=== PATIENT | male | born 1995 ===

== ENCOUNTER 2021-11-06 12:57 | Emergency (ER) | payer SELFPAY ==
--- NOTE | 2021-11-06 20:01 | XRay Report ---
LUMBAR SPINE 3 VIEWS INDICATION / CLINICAL INFORMATION: back pain. COMPARISON: None available. FINDINGS: VERTEBRAE: No acute fracture. No significant malalignment. DISC SPACES / FACET JOINTS:No significant abnormality. PARASPINAL SOFT TISSUES:No significant abnormality. ADDITIONAL FINDINGS: None. IMPRESSION: 1. No acute findings. Signer Name: Jose Alan MD Signed: 11/06/2021 7:56 PM Workstation Name: [id number]
[2021-11-06] MEDS ORDERED: KETOROLAC 30 MG/1 ML INJ IM ONE (20:33)
[2021-11-06] MEDS ORDERED: dexAMETHasone 20 MG/5 ML VIAL IM ONE (20:34)
--- NOTE | 2021-11-06 20:34 | Emergency Department Report ---
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 Patient states that he was bending down when he attempted to stand up that he felt pain in his lower back. States stiffness and tightness to the lower back. Patient rates pain is a current 5 out of 10. Patient denies any dysuria, loss of bowel or bladder. Patient able to ambulate . No obvious deformity noted. No distracting injury noted. No acute distress noted. No ill appearance noted. MD Complaint: back pain Onset/Timin -: days(s) Similar Symptoms Previously: No Place: work Radiation: none Severity scale (0 -10): 7 Quality: aching Consistency: intermittent Improves With: none, movement Context: while lifting Associated Symptoms: denies other symptoms - Related Data Previous Rx's Medication Instructions Recorded Last Taken Type Cyclobenzaprine [Flexeril] 10 mg PO TID PRN 15 Days #30 tab 11/06/21 Unknown Rx Naproxen [Naprosyn] 500 mg PO BID 15 Days #30 tablet 11/06/21 Unknown Rx predniSONE [Deltasone] 50 mg PO QDAY 5 Days #5 tab 11/06/21 Unknown Rx Allergies Allergy/AdvReac Type Severity Reaction Status Date / Time No Known Allergies Allergy Verified 11/06/21 13:26 ED Review of Systems ROS: Stated complaint: BACK/SPIN INJURY Other details as noted in HPI Constitutional: denies: chills, fever Eyes: denies: eye pain, eye discharge, vision change ENT: denies: ear pain, throat pain Respiratory: denies: cough, shortness of breath, wheezing Cardiovascular: denies: chest pain, palpitations Endocrine: no symptoms reported Gastrointestinal: denies: abdominal pain, nausea, diarrhea Genitourinary: denies: urgency, dysuria Musculoskeletal: back pain. denies: joint swelling, arthralgia Skin: denies: rash, lesions Neurological: denies: headache, weakness, paresthesias Psychiatric: denies: anxiety, depression Hematological/Lymphatic: denies: easy bleeding, easy bruising ED Past Medical Hx - Past Medical History Previous Medical History?: No - Surgical History Past Surgical History?: No - Social History Smoking Status: Never Smoker - Medications Home Medications: Home Medications Medication Instructions Recorded Confirmed Last Taken Type Cyclobenzaprine [Flexeril] 10 mg PO TID PRN 15 Days #30 tab 11/06/21 Unknown Rx Naproxen [Naprosyn] 500 mg PO BID 15 Days #30 tablet 11/06/21 Unknown Rx predniSONE [Deltasone] 50 mg PO QDAY 5 Days #5 tab 11/06/21 Unknown Rx ED Physical Exam - General Limitations: No Limitations General appearance: alert, in no apparent distress - Head Head exam: Present: atraumatic, normocephalic - Eye Eye exam: Present: normal appearance - ENT ENT exam: Present: mucous membranes moist - Neck Neck exam: Present: normal inspection - Respiratory Respiratory exam: Present: normal lung sounds bilaterally. Absent: respiratory distress - Cardiovascular Cardiovascular Exam: Present: regular rate, normal rhythm. Absent: systolic murmur, diastolic murmur, rubs, gallop - GI/Abdominal GI/Abdominal exam: Present: soft, normal bowel sounds - Rectal Rectal exam: Present: deferred - Extremities Exam Extremities exam: Present: normal inspection - Back Exam Back exam: Present: normal inspection - Neurological Exam Neurological exam: Present: alert, oriented X3 - Psychiatric Psychiatric exam: Present: normal affect, normal mood - Skin Skin exam: Present: warm, dry, intact, normal color. Absent: rash ED Course Vital Signs 11/06/21 13:23 Temperature 98.9 F Pulse Rate 62 Respiratory 16 Rate Blood Pressure 126/88 O2 Sat by Pulse 100 Oximetry ED Medical Decision Making - Radiology Data [facility] [address] [place] [address] XRay Report Signed Patient: JING MOODY MR#: [id number] : 1995 Acct:[id number] Age/Sex: 26 / M ADM Date: 11/06/21 Loc: ED Attending Dr: Ordering Physician: SUSHANT MCKEON Date of Service: 11/06/21 Procedure(s): XR spine lumbosacral 2-3V Accession Number(s): [id number] cc: SUSHANT MCKEON Fluoro Time In Minutes: LUMBAR SPINE 3 VIEWS INDICATION / CLINICAL INFORMATION: back pain. COMPARISON: None available. FINDINGS: VERTEBRAE: No acute fracture. No significant malalignment. DISC SPACES / FACET JOINTS:No significant abnormality. PARASPINAL SOFT TISSUES:No significant abnormality. ADDITIONAL FINDINGS: None. IMPRESSION: 1. No acute findings. 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 Patient states that he was bending down when he attempted to stand up that he felt pain in his lower back. States stiffness and tightness to the lower back. Patient rates pain is a current 5 out of 10. Patient denies any dysuria, loss of bowel or bladder. Patient able to ambulate . No obvious deformity noted. No distracting injury noted. No acute distress noted. No ill appearance noted. Physical examination unremarkable. Rechecked the patient is resting quietly quietly and comfortable and feeling better. I discussed the results of diagnostic study, my clinical impression and the plan for further treatment with the patient. Patient agrees with plan and d ischarge at this present time. All question addressed. I have given the patient instruction regarding a diagnosis ,expectation ,follow- up and return precaution. I explained to the patient that emergent condition may arise and to return to the ED for new worsen and any new persisting condition. I have explained the importance of following up with the primary care physician or referral physician listed below has instructed. The patient verbalized understanding of discharge instruction. Critical care attestation.: If time is entered above; I have spent that time in minutes in the direct care of this critically ill patient, excluding procedure time. ED Disposition Clinical Impression: Lumbar back pain Disposition: 01 HOME / SELF CARE / HOMELESS Is pt being admited?: No Does the pt Need Aspirin: No Condition: Stable Instructions: Low Back Sprain or Strain Rehab-SportsMed Additional Instructions: Take medication as prescribed Return to ED for any worsening symptom Prescriptions: predniSONE [Deltasone] 50 mg PO QDAY 5 Days #5 tab Cyclobenzaprine [Flexeril] 10 mg PO TID PRN 15 Days #30 tab PRN Reason: Muscle Spasm Naproxen [Naprosyn] 500 mg PO BID 15 Days #30 tablet Referrals: [facility] [Provider Group] - 3-5 Days Forms: Work/School Release Form(ED) Time of Disposition: 20:53
[2021-11-06] MEDS ORDERED: diazePAM 5 MG TAB PO ONE (20:40)
[2021-11-06 21:36] VITALS: BP 128/69
== END 2021-11-06 21:49 | disposition home or self-care (01) ==
LOC: ED 12:57
DX: M54.9 Dorsalgia, unspecified (principal)
CPT/HCPCS: 72100; 96372; 99283; J1100; J1885